=== PATIENT | male | born 1990 | race Caucasian/White ===

== ENCOUNTER 2023-10-03 14:40 | Emergency (ER) | payer SELFPAY ==
[2023-10-03 16:37] LABS: B. PARAPERTUSSIS- RESP PCR PAN NOT DETECTED; B. PERTUSSIS- RESP PCR PANEL NOT DETECTED; C. PNEUMONIAE- RESP PCR PANEL NOT DETECTED; CORONAVIRUS 229E-RESP PCR NOT DETECTED; CORONAVIRUS HKU1-RESP PCR NOT DETECTED; CORONAVIRUS NL63-RESP PCR NOT DETECTED; CORONAVIRUS OC43-RESP PCR NOT DETECTED; HUMAN METAPNEUMOVIRUS NOT DETECTED; INFLUENZA A- RESP PCR PANEL NOT DETECTED; INFLUENZA B - RESP PCR PANEL NOT DETECTED; M. PNEUMONIAE- RESP PCR PANEL NOT DETECTED; PARAINFLUENZA VIRUS 1 NOT DETECTED; PARAINFLUENZA VIRUS 2 NOT DETECTED; PARAINFLUENZA VIRUS 3 NOT DETECTED; PARAINFLUENZA VIRUS 4 NOT DETECTED; RHINOVIRUS/ENTEROVIRUS NOT DETECTED; RSV- RESP PCR PANEL NOT DETECTED; SARS-CoV-2 -RESP PCR PANEL NOT DETECTED
[2023-10-03 17:37] VITALS: O2SAT 97
--- NOTE | 2023-10-03 17:42 | ED Physician Documentation ---
PD HPI DYSPNEA - Stated complaint Stated Complaint: SOA,CONGESTION,SENT FROM [facility] - Chief complaint Chief Complaint: Resp - History obtained from History obtained from: Patient - Additional information Additional information: 32 yo male with soa since 2017. worse flat. worse x 2 mos mild cough no chest pain. some pedal edema former smoker bmi 61 seen at [facility] cxr done with mild prom intersitium, poss sm nodules PD PAST MEDICAL HISTORY - Past Medical History Past Medical History: Yes Cardiovascular: None Respiratory: Asthma Neuro: None Endocrine/Autoimmune: None GI: None : None HEENT: None Psych: Anxiety Musculoskeletal: None - Past Surgical History Past Surgical History: Yes Ortho: Other - Present Medications Home Medications: Ambulatory Orders Medication Instructions Recorded Confirmed Albuterol 2.5 mg INH Q4H PRN #30 ml 10/03/23 Furosemide [Lasix] 20 mg PO DAILY #10 tablet 10/03/23 Lisinopril [Zestril] 10 mg PO DAILY #30 tablet 10/03/23 Nebulizer 1 each MC Q6HR #1 ea 10/03/23 - Allergies Allergies/Adverse Reactions: Allergies Allergy/AdvReac Type Severity Reaction Status Date / Time No Known Drug Allergies Allergy Verified 10/03/23 15:11 - Social History Does the pt smoke?: No Smoking Status: Former smoker Does the pt drink ETOH?: No Does the pt have substance abuse?: No - Immunizations Immunizations are current?: No Immunizations: Other immun not current - POLST Patient has POLST: No PD ED PE NORMAL - Vitals Vital signs reviewed: Yes - General General: Alert and oriented X 3, No acute distress - Neck Neck: Supple, no meningeal sign, No bony TTP - Cardiac Cardiac: RRR, No murmur - Respiratory Respiratory: No respiratory distress, Other (some wheeze, difficult exam d/t bmi, diminished.) - Abdomen Abdomen: Non tender - Extremities Extremities: Other (more venous stasis changes than edema.) - Neuro Neuro: Alert and oriented X 3 Results - Vitals Vitals: Vital Signs - 24 hr 10/03/23 10/03/23 10/03/23 15:14 17:32 17:50 Temperature 37.1 C Heart Rate 107 H 103 H 101 H Respiratory 26 H 20 20 Rate Blood Pressure 181/137 H O2 Saturation 98 97 10/03/23 18:00 Temperature Heart Rate 108 H Respiratory 20 Rate Blood Pressure 169/123 H O2 Saturation 97 Oxygen O2 Source Room air - EKG (time done) 1758 EKG releavant findings:: EKG personally interpreted by author of this note. Relevant findings are: Rate: Rate (enter#) (101) Rhythm: Sinus tachycardia, [place]: Normal Intervals: Normal [place], Prolonged QT (516) QRS: Normal Ischemia: Normal ST segments Compare to prior EKG: Old EKG unavailable Computer interpretation: Agree with computer - Labs Labs: Laboratory Tests 10/03/23 10/03/23 10/03/23 15:20 17:50 17:50 WBC 12.1 H RBC 5.04 Hgb 15.1 Hct 46.8 MCV 92.9 MCH 30.0 MCHC 32.3 RDW 13.2 Plt Count 345 MPV 10.2 Neut # (Auto) 8.5 H Lymph # (Auto) 2.2 [facility] # (Auto) 0.8 Eos # (Auto) 0.5 Baso # (Auto) 0.1 Absolute Nucleated RBC 0.00 Nucleated RBC % 0.0 Sodium 137 Potassium 3.9 Chloride 103 Carbon Dioxide 28 Anion Gap 6.0 BUN 10 Creatinine 0.8 Estimated GFR (MDRD) 111 Glucose 108 H Calcium 9.9 Total Bilirubin 0.8 AST 24 ALT 36 Alkaline Phosphatase 106 B-Natriuretic Peptide Total Protein 7.4 Albumin 4.1 Globulin 3.3 Albumin/Globulin Ratio 1.2 Nasal Adenovirus (PCR) NOT DETECTED Nasal B. parapertussis DNA (PCR) NOT DETECTED Nasal Coronavir 229E PCR NOT DETECTED Nasal Coronavir HKU1 PCR NOT DETECTED Nasal Coronavir NL63 PCR NOT DETECTED Nasal Coronavir OC43 PCR NOT DETECTED Nasal Enterovir/Rhinovir PCR NOT DETECTED Nasal Influenza B PCR NOT DETECTED Nasal Influenza A PCR NOT DETECTED Nasal Parainfluen 1 PCR NOT DETECTED Nasal Parainfluen 2 PCR NOT DETECTED Nasal Parainfluen 3 PCR NOT DETECTED Nasal Parainfluen 4 PCR NOT DETECTED Nasal RSV (PCR) NOT DETECTED Nasal B.pertussis DNA PCR NOT DETECTED Nasal C.pneumoniae (PCR) NOT DETECTED Zachariah Human Metapneumo PCR NOT DETECTED Nasal M.pneumoniae (PCR) NOT DETECTED Nasal SARS-CoV-2 (PCR) NOT DETECTED 10/03/23 17:50 WBC RBC Hgb Hct MCV MCH MCHC RDW Plt Count MPV Neut # (Auto) Lymph # (Auto) [facility] # (Auto) Eos # (Auto) Baso # (Auto) Absolute Nucleated RBC Nucleated RBC % Sodium Potassium Chloride Carbon Dioxide Anion Gap BUN Creatinine Estimated GFR (MDRD) Glucose Calcium Total Bilirubin AST ALT Alkaline Phosphatase B-Natriuretic Peptide 429 H Total Protein Albumin Globulin Albumin/Globulin Ratio Nasal Adenovirus (PCR) Nasal B. parapertussis DNA (PCR) Nasal Coronavir 229E PCR Nasal Coronavir HKU1 PCR Nasal Coronavir NL63 PCR Nasal Coronavir OC43 PCR Nasal Enterovir/Rhinovir PCR Nasal Influenza B PCR Nasal Influenza A PCR Nasal Parainfluen 1 PCR Nasal Parainfluen 2 PCR Nasal Parainfluen 3 PCR Nasal Parainfluen 4 PCR Nasal RSV (PCR) Nasal B.pertussis DNA PCR Nasal C.pneumoniae (PCR) Zachariah Human Metapneumo PCR Nasal M.pneumoniae (PCR) Nasal SARS-CoV-2 (PCR) PD Medical Decision Making - ED course ED course: 32-year-old gentleman has had shortness of breath for 7 years and sent from the walk-in clinic for same. His x-ray was somewhat limited by body habitus but notable for prominent interstitium with possible nodules. He did have a positive BNP and was fairly hypertensive here. He has a history of sleep apnea but is no longer compliant with his CPAP. He is wheezing and did get some relief with an albuterol neb here. As such I think his dyspnea is multifactorial including some element of CHF due to body habitus, potential hypertension noting that he is fairly hypertensive here. Also has untreated JOHN, morbid obesity, and probably some element of reactive airways. Will start diuretics, MOE inhibitor, and albuterol pending follow-up. Departure - Departure Disposition: 01 Home, Self Care Clinical Impression: Congestive heart failure, RAD (reactive airway disease) Condition: Good Record reviewed to determine appropriate education?: Yes Instructions: Moe Inhibitor, ED Reactive Airway Disease, ED CHF General Follow-Up: [facility] [place] [Provider Group] Prescriptions: Nebulizer 1 each MC Q6HR #1 ea Albuterol 2.5 mg INH Q4H PRN #30 ml PRN Reason: Wheezing Furosemide [Lasix] 20 mg PO DAILY #10 tablet Lisinopril [Zestril] 10 mg PO DAILY #30 tablet Comments: you were seen today for shortness of breath I think it a combo of RAD and CHF The CHF is likely due to a combination of obesity, untreated sleep apnea and high blood pressure. I sent prescriotion electronically to [facility] in [place] Call our clinic to arrange close followup, they are classification analyst for our patients that do not have a pcp. call tomorrow! Try your best to lose weight and exercise. You also need to get setup again for CPAP. You will need a repeat chest xray in 4-6 weeks to reassess. Forms: PCP List Discharge Date/Time: 10/03/23 19:03
[2023-10-03] MEDS: ALBUTEROL NEB 2.5 MG/3 ML INH STA (17:48)
[2023-10-03 18:00] LABS: BASOPHILS # (AUTO) 0.1 10^3/uL (0.0-0.1); BASOPHILS % (AUTO) 0.6 %; EOSINOPHILS # (AUTO) 0.5 10^3/uL (0.0-0.7); EOSINOPHILS % (AUTO) 4.5 %; HCT - HEMATOCRIT 46.8 % (42.0-52.0); HGB - HEMOGLOBIN 15.1 g/dL (14.0-18.0); LYMPHOCYTES # (AUTO) 2.2 10^3/uL (1.5-3.5); LYMPHOCYTES % (AUTO) 18.1 %; MEAN CORPUSCULAR HGB CONC 32.3 g/dL (32.0-36.0); MEAN CORPUSCULAR VOLUME 92.9 fL (80.0-94.0); MEAN PLATELET VOLUME 10.2 fL (7.4-11.4); MONOCYTES # (AUTO) 0.8 10^3/uL (0.0-1.0); MONOCYTES % (AUTO) 6.5 %; NEUTROPHILS # (AUTO) 8.5 10^3/uL (1.5-6.6); PLT - PLATELET COUNT 345 10^3/uL (130-450); RED BLOOD COUNT 5.04 10^6/uL (4.70-6.10); RED CELL DISTRIBUTION WIDTH 13.2 % (12.0-15.0); WHITE BLOOD COUNT 12.1 x10^3/uL (4.8-10.8)
[2023-10-03 18:18] LABS: ALBUMIN 4.1 g/dL (3.2-5.5); ALBUMIN/GLOBULIN RATIO 1.2 (1.0-2.2); BILIRUBIN,TOTAL 0.8 mg/dL (0.2-1.0); CALCIUM 9.9 mg/dL (8.5-10.3); CREATININE 0.8 mg/dL (0.6-1.3); POTASSIUM 3.9 mmol/L (3.5-4.5); TOTAL PROTEIN 7.4 g/dL (6.4-8.9)
[2023-10-03 18:33] VITALS: BP 169/123
--- NOTE | 2023-10-04 09:54 | ED Physician Documentation ---
ED Addendum - Addendum Addendum: 10/04/23 09:54 Contacted by [facility] pharmacy. Patient was unable to fill his prescription for a nebulizer machine at originally preferred pharmacy [facility], prescription for nebulizer machine is retransmitted to [facility] pharmacy in [place]
== END 2023-10-03 19:03 | disposition home or self-care (01) ==
LOC: ED 14:40
DX: J45.909 Unspecified asthma, uncomplicated (principal); I50.9 Heart failure, unspecified; Z87.891 Personal history of nicotine dependence; Z11.52 Encounter for screening for COVID-19
CPT/HCPCS: 36415; 80053; 83880; 85025; 87633; 93005; 94640; 94664; 99283; 99284